=== PATIENT | female | born 1995 | race African-American/Black ===

== ENCOUNTER 2020-09-05 20:24 | Emergency (ER) | payer OTHER, SELFPAY ==
--- NOTE | ~2020-09-05 | US_ITS ---
EXAMINATION: US OB <=14 wk fetus w TV DATE: 09/06/2020 02:36 INDICATION: Pelvic pain. TECHNIQUE: Real-time transabdominal and transvaginal pelvic ultrasound was performed. COMPARISON: None. FINDINGS: TRANSABDOMINAL ULTRASOUND: The uterus measures 8.6 x 3.9 x 5.2 cm. TRANSVAGINAL ULTRASOUND: The endometrial complex measures 11 mm in thickness. There is no visible int rauterine gestational sac. There are nabothian cysts in the cervix. The right ovary measures 3.7 x 2. 8 x 2.4 cm. The left ovary measures 1.7 x 1.2 x 1.2 cm. There is no free fluid in the pelvis. IMPRESSION: 1. No visible intrauterine gestational sac, which may be normal in early . Spontaneous abor tion and ectopic are not excluded. Serial beta-hCGs are recommended. Reviewed, dictated and finalized at location A. IMPRESSION: 1. No visible intrauterine gestational sac, which may be normal in early pregn jennifer. Spontaneous and ectopic are not excluded. Serial beta- hCGs are recommended.
[2020-09-05 21:31] VITALS: BP 120/79; PULSE 81; RESP 16; TEMP 36.9; O2SAT 100
[2020-09-05 22:54] LABS: Basophils Percent Auto 0.2 % (0.2-1.2); Eosinophils Absolute Auto 0.1 K/mm3 (0-0.3); Hemoglobin 13.9 g/dL (12.0-15.0); Immature Granulocyte Absolute 0.04 K/mm3 (0.00-0.031); Immature Granulocyte Percent A 0.3 % (0-0.5); Lymphocytes Absolute Auto 3.46 K/mm3 (0.9-3.2); Lymphocytes Percent Auto 26.3 % (18.3-44.2); Mean Corpuscular HGB Conc 32.3 g/dl (32-36); Mean Corpuscular Hemoglobin 32.1 pg (26-34); Mean Corpuscular Volume 99.3 fl (80-100); Mean Platelet Volume 10.9 fl (7.4-10.4); Monocytes Absolute Auto 0.8 K/mm3 (0.1-0.6); Monocytes Percent Auto 6.1 % (2.6-8.5); Neutrophils Absolute Auto 8.7 K/mm3 (1.3-6.7); Neutrophils Percent Auto 66.1 % (45.5-73.1); Platelet Count Result 279 k/mm3 (150-375); Red Blood Count 4.33 M/mm3 (4.2-5.4); Red Cell Distribution Width 13.2 % (11.5-14.5); White Blood Count 13.2 K/mm3 (4.5-10.0)
[2020-09-05 23:08] LABS: Alanine Aminotransferase 21 U/L (4-35); Albumin Level 4.4 g/dL (3.5-5.1); Alkaline Phosphatase 87 U/L (38-126); Anion Gap 9 mmol/L (8-16); Aspartate Amino Transferase 27 U/L (14-36); Bilirubin,Total 0.2 mg/dL (0.2-1.3); Blood Urea Nitrogen 14 mg/dL (7-17); Calcium 9.2 mg/dL (8.4-10.2); Carbon Dioxide 23 mmol/L (22-30); Chloride 106 mmol/L (98-107); Estimated CRCL calculation 112 ml/min; Estimated Glomerular Filt Rate > 60; Glucose 98 mg/dL (65-105); Lipase 138 U/L (23-300); Potassium 3.9 mmol/L (3.4-5.0); Sodium 138 mmol/L (137-145)
[2020-09-05 23:13] LABS: Add Urine Microscopic? YES; Appearance Urine Cloudy (Clear); Bilirubin Urine Negative (Negative); Blood Urine Negative (Negative); Color Urine Yellow (Yellow); Glucose Urine UA Negative (Negative); Ketones Urine Negative (Negative); Leukocyte Esterase Ur Trace LEU/UL (Negative); Mucus Urine Rare /lpf; Nitrate Urine Negative (Negative); Protein Urine Negative (Negative); Specific Grav Ur 1.012 (1.001-1.035); Squamous Epithelial Cell Urine Many /hpf (Few); Urobilinogen Urine Negative mg/dL (<2.0); WBC Urine 0-3 /hpf
[2020-09-05 23:24] LABS: Beta HCG Quantitative 21.25 mIU/ML
[2020-09-06 01:07] VITALS: BP 133/90; PULSE 71; RESP 18; O2SAT 99
--- NOTE | 2020-09-06 01:47 | ED.ABDPAIN ---
HPI - Abdominal Pain General Chief Complaint: Abdominal Pain Stated Complaint: test Time Seen by Provider: 09/06/20 00:41 Source: patient and RN notes reviewed Mode of arrival: ambulatory Limitations: no limitations History of Present Illness HPI narrative: This is a 25 year old female who presents for evaluation to confirm her . She reports lower abdominal pain for a few days. She states her last menstrual period was the end of june . She took 3 test yesterday. She reports 2 of the test were positive and one of the test was negative. She denies vaginal bleeding or abnormal vaginal discharge. She denies nausea, vomiting or fever. She has not taken anything for her pain. 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 Millard. Related Data Home Medications Medication Instructions Recorded Confirmed No Home Medications 09/06/20 Allergies Allergy/AdvReac Type Severity Reaction Status Date / Time No Known Allergies Allergy Unknown Verified 09/06/20 01:07 Review of Systems Review of Systems: All systems reviewed & are unremarkable except as noted in HPI and below PMFSH Past Medical History Medical History (Updated 09/06/20 @ 06:25 by Arleth Esparza MD) Patient denies medical problems Surgical History Surgical History (Updated 09/06/20 @ 01:50 by Arleth Esparza MD) H/O section Social History Social History Gender identity (if verbalized by the patient): Female Exam Const: General: no acute distress and alert Orientation/consciousness: patient oriented x3 Eyes: EOM: EOMs intact bilaterally Chest: Chest palpation & inspection: normal inspection of the chest Resp: Effort & Inspection: normal respiratory effort and no retractions Auscultation: clear to auscultation bilaterally Cardio: Rate: regular rate Rhythm: regular rhythm Heart sounds: no murmurs GI: GI Palp: Yes Soft to palpation, Yes Tenderness to palpation present (GI) (suprapubic) and No Guarding due to palpation present (GI) Auscultation: normal bowel sounds Skin: General skin exam: normal color Rashes: no rashes Neuro: General: patient oriented x3, moves all extremities and CN's II-XI intact bilaterally Psych: Mental Status: mental status grossly normal Affect: normal affect Course Reevaluation(s) Reevaluation #1: PAtient states she does not want to wait for results of US. She left without results or discharge. She will follow up with Dr. Millard. PAtient HCG 21. Date: 09/06/20 Time: 03:00 Vital Signs Vital signs: Vital Signs Temperature 98.4 F 09/05/20 21:31 Pulse Rate 81 09/05/20 21:31 Respiratory Rate 16 09/05/20 21:31 Blood Pressure 120/79 09/05/20 21:31 Pulse Oximetry 100 09/05/20 21:31 Temperature 98.4 F 09/05/20 21:31 Pulse Rate 71 09/06/20 01:07 Respiratory Rate 18 09/06/20 01:07 Blood Pressure 133/90 09/06/20 01:07 Pulse Oximetry 99 09/06/20 01:07 MDM - Abdominal Pain Lab Data Attestation: I reviewed the patient's lab results. Result diagrams: 09/05/20 22:40 09/05/20 22:41 Labs: Lab Results 09/05/20 09/05/20 09/05/20 Range/Units 22:40 22:41 22:41 WBC 13.2 H (4.5-10.0) K/mm3 RBC 4.33 (4.2-5.4) M/mm3 Hgb 13.9 (12.0-15.0) g/dL Hct 43.0 (37.0-47.0) % MCV 99.3 (80-100) fl MCH 32.1 (26-34) pg MCHC 32.3 (32-36) g/dl RDW 13.2 (11.5-14.5) % Plt Count 279 (150-375) k/mm3 MPV 10.9 H (7.4-10.4) fl Immature Gran % (Auto) 0.3 (0-0.5) % Neut % (Auto) 66.1 (45.5-73.1) % Lymph % (Auto) 26.3 (18.3-44.2) % [place] % (Auto) 6.1 (2.6-8.5) % Eos % (Auto) 1.0 (0-4.4) % Baso % (Auto) 0.2 (0.2-1.2) % Lymph # (Auto) 3.46 H (0.9-3.2) K/mm3 [place] # (Auto) 0.8 H (0.1-0.6) K/mm3 Eos # (Auto) 0.1 (0-0.3) K/mm3 Baso # (Auto) 0.0 (0.0-0.1) K/mm3 Abs Immat Gran (auto) 0.04 H (0.00-0.031) K/mm3 Absolute Ne
[2020-09-06] MEDS: ACETAMINOPHEN 500 MG TABLET 1000 MG PO (01:53)
--- NOTE | 2020-09-06 03:30 | PC.NURSE ---
This RN entered pts room and found that pt eloped. EDP aware.
== END 2020-09-06 03:30 | disposition left against medical advice (07) ==
PROVIDERS: Emergency Medicine; Emergency Provider General Practice; PCP Internal Medicine Infectious Disease
DX: O34.80 Maternal care for other abnormalities of pelvic organs, unspecified trimester (principal); N83.201 Unspecified ovarian cyst, right side; Z3A.00 Weeks of gestation of pregnancy not specified; Z32.01 Encounter for pregnancy test, result positive
CPT/HCPCS: 36415; 76801; 76817; 80053; 81001; 81025; 83690; 84702; 85025; 99284; A9270

== ENCOUNTER 2020-10-27 09:32 | Outpatient (CLI) | payer OTHER, SELFPAY ==
--- NOTE | ~2020-10-27 | US_ITS ---
EXAMINATION: US OB <= 14 weeks fetus DATE: 10/27/2020 10:00 INDICATION: First trimester dating TECHNIQUE: Real-time pelvic transabdominal and transvaginal ultrasound was performed. COMPARISON: 09/06/2020 FINDINGS: The uterus measures 12.8 x 7.0 x 6.5 cm. There is an intrauterine gestational sac. A yolk sac is identified. heart motion is identified measuring 161 beats per minute (bpm) by M-mode Do ppler. The crown rump length measures 4.2 cm , which correlates with an estimated gestational a ge of 11 weeks and 1 day(s) (+/-) 5 day(s). The left ovary is not visualized however no left adnexal abnormality is seen. The right ovary measure s 2.5 x 2.1 x 2.1 cm. There is normal vascular flow in the right ovary. There is no free fluid in the pelvis. IMPRESSION: 1. Live intrauterine with an estimated gestational age of 11 weeks and 1 day(s) (+/-) 5 day (s) and an estimated delivery date of 05/17/2021. Reviewed, dictated and finalized at location A. IMPRESSION: 1. Live intrauterine with an estimated gestational age of 11 weeks an d 1 day(s) (+/-) 5 day(s) and an estimated delivery date of 05/17/2021.
== END 2020-10-27 09:33 | disposition home or self-care (01) ==
PROVIDERS: PCP Internal Medicine Infectious Disease; Visit Provider Physician Assistant
DX: Z34.91 Encounter for supervision of normal pregnancy, unspecified, first trimester (principal)
CPT/HCPCS: 76801

== ENCOUNTER 2021-05-17 07:19 | Inpatient (IN) | payer OTHER, SELFPAY ==
[2021-05-17] VITALS (15 sets, daily range): BP systolic 98–130; BP diastolic 54–98; PULSE 64–117; RESP 16–18; TEMP 36.5–37; O2SAT 97–99; BMI 43.4
[2021-05-17 07:47] LABS: Basophils Absolute Auto 0.1 K/mm3 (0.0-0.1); Basophils Percent Auto 0.3 % (0.2-1.2); Eosinophils Absolute Auto 0.1 K/mm3 (0-0.3); Eosinophils Percent Auto 0.8 % (0-4.4); Hematocrit 40.7 % (37.0-47.0); Hemoglobin 13.6 g/dL (12.0-15.0); Immature Granulocyte Absolute 0.21 K/mm3 (0.00-0.031); Immature Granulocyte Percent A 1.4 % (0-0.5); Lymphocytes Percent Auto 21.4 % (18.3-44.2); Mean Corpuscular HGB Conc 33.4 g/dl (32-36); Mean Corpuscular Hemoglobin 33.1 pg (26-34); Mean Platelet Volume 11.1 fl (7.4-10.4); Monocytes Absolute Auto 1.4 K/mm3 (0.1-0.6); Monocytes Percent Auto 8.9 % (2.6-8.5); Neutrophils Absolute Auto 10.4 K/mm3 (1.3-6.7); Neutrophils Percent Auto 67.2 % (45.5-73.1); Platelet Count Result 257 k/mm3 (150-375); Red Blood Count 4.11 M/mm3 (4.2-5.4); White Blood Count 15.4 K/mm3 (4.5-10.0)
--- NOTE | 2021-05-17 08:07 | PM.OBPRVD ---
OB - Delivery Note Procedure Delivery date: 05/17/21 Procedure: Vaginal After Events: Positive Group B Strep (GBS) Intrapartal Events: Decelerations and Other (mild shoulder dystocia) Delivery monitor: External FHT, External Uterine and Internal FHT Route of delivery: Laceration Description: None Quantitative Blood Loss (ml): 25 Anesthesia type: None Disposition: Floor Narrative: With adequate expulsive efforts by the mother, the baby's head was delivered OA. A mild shoulder dystocia was encountered and relieved with Mc Jose L's and suprapubic pressure. The baby's anterior shoulder then delivered under the pubic symphysis without difficulty. The posterior shoulder and the rest of the baby delivered without difficulty. The infant was placed on the mothers chest and suctioned and stimulated. The cord was clamped and cut after 60 seconds. Mother and baby both stable. Baby Date of : 05/17/21 Time of : 07:54 Weeks of gestation at delivery: 40 Infant gender: Female Weight (pounds): 7 Weight (ounces): 5 presentation: vertex Placenta delivery description: Spontaneous Cord Vessel Description: 3 Vessels and Delayed Cord Clamping score one minute: 9 score five minutes: 9
--- NOTE | 2021-05-17 08:10 | WPDOBADMIT ---
Obstetrics - Admit Note Admission Note: record reviewed. No pertinent additions to the history and/or any subsequent changes in the physical findings that are not consistent with the expected course of the were found. Additions to the history and/or subsequent changes in the physical findings follow. Pt presented in active labor at 8cm, known GBS pos, but delivered precipitously without anesthesia or antibiotics. Had a prior CS and one prior .
[2021-05-17] MEDS: OXYTOCIN 30 UNITS/NS 500 ML 30 UNITS/500 ML BAG 999 UNITS IV CONT (08:29)
[2021-05-17] MEDS: OXYTOCIN 30 UNITS/NS 500 ML 30 UNITS/500 ML BAG 125 UNITS IV CONT (08:31)
[2021-05-17] MEDS: IBUPROFEN 600 MG TABLET PO ×2 (08:41→15:39)
--- NOTE | 2021-05-17 09:07 | LDADM ---
This patient, Rosalba Amin, was admitted to Labor/Delivery/Recovery 102 on 05/17/21 at 07:19. Plans for labor, pain management and were discussed with patient. Patient/family oriented to hospital policies and general routines including ID bracelet, bed and alarms, visiting hours, pain management, procedures, bathroom and other care routines, personal items, smoking policy, room service/diet and guest tray routines, infant security routines, and visiting hours. Patient/Family are encouraged to report perceived risks to care and to ask questions if they do not understand what they are told or what they should do. See [facility] for further documentation.
[2021-05-17] MEDS: WITCH HAZEL 40 PADS 1 PAD TOPICAL (10:10)
--- NOTE | 2021-05-17 10:27 | OBPPTRN ---
Patient transferred to post room #284 via wheelchair. Support person present. Oriented to unit, room, information board, rooming in, admission packet and security measures. Patient verbalizes understanding.
--- NOTE | 2021-05-17 11:49 | PC.NURSE ---
On 05/17/21, the student,Manan Velasco, provided care and completed [facility] documentation on this patient. I have reviewed the student's documentation and agree with the findings.
--- NOTE | 2021-05-17 12:52 | PC.NURSE ---
Patient admits to marijuana use during , UDS is negative; there was limited care at the beginning of her due to changing providers, but she was consistent with her appointments for Dr. Cerda. Due to these reasons, care coordination was notified for consult with patient. [employer] medical recruiter Dr. Murilloi aware of this information and orders a cord sengment to be sent for drug screening on baby.
[2021-05-17 13:50] LABS: Rapid Plasma Reagin Reactive (NonReactive)
--- NOTE | 2021-05-17 16:08 | PCCCNOTE ---
Recvd notification that pt. has history of marijuana use during . Pt. was not tested for drug use during this admission. Baby's umbilical cord to be tested. Pt. denies drug use and prior DCFS involvement. DCFS report #[id number] called to Sabine Maza with DCFS, who reports no report being taken and if baby's umbilical cord only comes back THC+, no follow up call to them is required. She states to notify DCFS again if umbilical cord is positive for anything else, besides THC. CHARLES Jose L at bedside. Pt. states will live at home in [place] with FOB, and two other children 6 and 4 year olds. Pt. states she has family and friends who are supportive. Pt. states having all necessary supplies for new baby. Pt. states she is established with both [employer] and [employer] [place]. resources provided to pt. RAJIV melgoza.
[2021-05-18 04:15] VITALS: BP 131/70; PULSE 88; RESP 16; TEMP 36.8
[2021-05-18 05:23] LABS: Hematocrit 36.3 % (37.0-47.0); Hemoglobin 11.9 g/dL (12.0-15.0)
[2021-05-18 07:30] VITALS: BP 117/57; PULSE 72; RESP 18; TEMP 36.4; O2SAT 100
--- NOTE | 2021-05-18 07:57 | PM.OBPNVD ---
OB - PN: Subj Subjective Date/time seen: 05/18/21 07:57 Patient comments: no complaints, pain well controlled, incisional pain, tolerating diet and flatus present OB - PN: Obj Data Labs CBC & Chem 7: 05/18/21 04:35 Labs: Laboratory Results - last 24 hr 05/17/21 05/17/21 05/18/21 07:39 07:39 04:35 Hgb 11.9 L Hct 36.3 L RPR Reactive A Blood Type O Positive Antibody Screen Negative OB - PN A/P Plan day: 1 Plan: routine care Comments: No problems, routine care Time Spent With Patient Time: Total time spent is greater than 50% in coordination of care (as documented) at patient's floor/unit and/or counseling patient: Exam Const: General: comfortable, no acute distress and alert Resp: Effort & Inspection: normal respiratory effort Auscultation: no crackles, no rales and no rhonchi Cardio: Rate: regular rate Heart sounds: no click, no murmurs and no rubs GI: Inspection: non-distended GI Palp: No Tenderness to palpation present (GI) Auscultation: normal bowel sounds Other: Incision - CDI Extrem: General: normal to inspection, no pedal edema and no calf tenderness
[2021-05-18 08:00] VITALS: PULSE 72; RESP 18; O2SAT 100
--- NOTE | 2021-05-18 10:06 | PC.NURSE ---
[id number] Introductions made and consulted with patient to assess needs related to . Mother led conversation with her experience with feeding baby so far and has in sidelying position latch looks 140-150 degree but states the latch feels pinchy . Demonstrated detaching infant and nipple is misshaped. Mother works well with her infant. Reviewed good handwashing when working with infant, breast, nipples and how to protect the nipples with a deep latch. Encouraged understanding the benefits of skin to skin, responding to feeding cues, frequencies of feeding 8-12 times in 24 hours (approximately 2-3 hours), duration of feedings, milk production, intake/output feeding sheet and signs of adequate intake. Discussed stimulating infant with skin to skin, hand expressing colostrum, touch and talking to infant to encourage eating at the breast. Reviewed positioning and alignment, supporting breast, off-centered (asymmetrical latch) and leading with the chin with big open wide gape. Infant latched optimally to the right breast in football position. Education given to mother of how to visualize suck/swallow ratios and drinking at the breast. Infant was able to maintain latch without discomfort to mother. Nipple care with optimal latching, comfort and healing with warm, wet washcloth to rinse breast and leave to air-dry. Resources used to facilitate learning were used from the visual handouts. Mother voiced understanding responding to feeding cues, may need to stimulating approximately 2-3 hours from the start of the last feeding, calling for assistance if the infant does not latch or there discomfort . Reported to primary RN.
[2021-05-18] MEDS: MULTIVIT/MIN/PREN/FOL AC/IRON TABLET 1 TAB PO (11:56)
[2021-05-18] MEDS: IBUPROFEN 600 MG TABLET PO (11:56)
[2021-05-18 18:55] VITALS: BP 128/77; PULSE 75; RESP 16; TEMP 36.7
--- NOTE | 2021-05-19 07:16 | PM.OBPNVD ---
OB - PN: Subj Subjective Date/time seen: 05/19/21 07:16 Patient comments: no complaints baby status: doing well OB - PN: Obj Data Labs CBC & Chem 7: 05/18/21 04:35 OB - PN A/P Plan day: 2 Plan: routine care and discharge home Time Spent With Patient Time: Total time spent is greater than 50% in coordination of care (as documented) at patient's floor/unit and/or counseling patient: Review of Systems Review of Systems: All systems reviewed & are unremarkable except as noted in HPI and below Exam Const: General: cooperative, healthy appearing and comfortable
[2021-05-19 07:55] VITALS: BP 96/47; PULSE 56; RESP 16; TEMP 36.2; O2SAT 100
[2021-05-19 08:00] VITALS: PULSE 56; RESP 16; O2SAT 100
--- NOTE | 2021-05-19 10:48 | PC.NURSE ---
Patient was given the opportunity to view the discharge video Mother & Baby Care, The First Two Weeks and to ask questions. Patient declined viewing the video and has been given the mother/baby guide for home reference.
[2021-05-19] MEDS: MULTIVIT/MIN/PREN/FOL AC/IRON TABLET 1 TAB PO (11:12)
[2021-05-19] MEDS: IBUPROFEN 600 MG TABLET PO (11:16)
[2021-05-20 11:14] VITALS: BP 123/75; PULSE 67; RESP 16; TEMP 36.7; O2SAT 99
[2021-05-20 21:24] LABS: Treponema pallidum Ab FTA ABS Nonreactive (Nonreactive)
--- NOTE | 2021-05-21 18:08 | PM.OBDSVD ---
DS: Admitting Diagnosis Discharge Date 05/19/21 Admitting Diagnosis labor OB - DS: Summary OB Procedures : None OB Procedures Intrapartum: Spontaneous Vag Delivery and OB Procedures: : None Time Spent with Patient Time attestation: Total time spent providing and/or coordinating discharge services: DS: Data Data Completed and Pending Labs on day of discharge: Labs from last 24 hours 05/17/21 07:39 T.pallidum Ab (FTA-ABS) Nonreactive Discharge Plan Discharge Attending physician on discharge: Linda Jeffrey Consulting providers: Linda Jeffrey ; Blanca Hinton Discharging Clinician: Blanca Hinton Patient Disposition: Home, Self-Care Activity: pelvic rest Diet: regular Discharge Instructions: Education: Mom and Baby Guide Given to: Mother Follow-Up: Call your delivering provider's office for an appointment to be seen in: 4 Weeks Mom and baby should come to the [facility] for the follow-up appointment. Appointment Date/Time: Thursday, May 20, 2021 at 11:00 a.m. What to expect at your follow-up visit: Blood Pressure Check Physical Assessment Call [phone] if you are unable to keep your appointment time. BREAST CARE: * Wear a snug supportive bra. * For engorgement discomfort: Breast Feeding: * Apply warm moist washcloths * Express milk as needed to relieve engorgement * Wear loose clothing Bottle Feeding: * May apply ice packs * For sore nipples: * Identify correct latch-on * Apply warm moist washcloths before and after nursing * Air dry nipples after nursing * May apply Lansinoh cream to nipples EPISIOTOMY/PERINEAL CARE: * Until bleeding stops, use your jericho bottle after urinating * Change your pad frequently throughout the day * You may take sitz baths several times a day (fill your bathtub with warm water and soak for 20 minutes.) Do NOT bathe in the water * No tub baths until seen by your physician - You may shower ACTIVITY: * Rest as much as possible. * Do not exercise or lift anything heavier than your baby (such as laundry or other children.) * Avoid stairs or driving as much as possible. * Do not put anything into the vagina. No douching, tampons, or sexual activity until seen by physician. NOTIFY PHYSICIAN IF YOU HAVE ANY QUESTIONS OR IF ANY OF THE FOLLOWING SYMPTOMS OCCUR: * If your vaginal bleeding becomes foul smelling. * If your vaginal bleeding becomes more heavy than a period or if your bleeding changes from pink to bright red. However, you may pass an occasional walnut-sized clot once or twice for the first week . * If you experience a sharp, shooting pain in you calves. * If you discover a hard, reddened area on your breast or if you experience flu-like symptoms. DIET: * Eat regular, well-balanced meals. * Drink plenty of fluids daily. If , drink to thirst. Stand Alone Forms: General Discharge Information Follow-up/Referrals: Sabine Singh MD [Physician] - 4 Weeks Discharge Medications: Continued PNV [id number] [] 28 mg iron- 800 mcg Tablet 1 tablet PO DAILY RF: 0 Date of admission: 05/17/21 07:19 Primary Care Provider: GriselShyanne Admitting Provider: Sabine Singh Attending physician on admission: Sabine Singh Condition: Stable
== END 2021-05-19 12:55 | disposition home or self-care (01) | DRG 560 ==
LOC: ANHLDR 07:24 → ANHOB2 10:29
PROVIDERS: Admitting Provider Obstetrics & Gynecology; PCP Internal Medicine Infectious Disease; Visit Provider Obstetrics & Gynecology
DX: O62.3 Precipitate labor (principal); Z37.0 Single live birth; Z3A.40 40 weeks gestation of pregnancy; O34.211 Maternal care for low transverse scar from previous cesarean delivery; O36.8330 Maternal care for abnormalities of the fetal heart rate or rhythm, third trimester, not applicable or unspecified; O99.824 Streptococcus B carrier state complicating childbirth; O66.0 Obstructed labor due to shoulder dystocia
CPT/HCPCS: 36415; 85014; 85018; 85025; 86592; 86780; 86850; 86900; 86901; A9270; J2590

== ENCOUNTER 2021-08-08 00:02 | Day surgery (SDC) | payer OTHER, SELFPAY ==
[2021-07-31 13:42] VITALS: BMI 40.0
--- NOTE | 2021-07-31 13:44 | SUR.PREOP ---
Report to the Outpatient Waiting Room, entrance under the green pavilion located off [facility], at time _0600 on date _08/08/21 . OR Time: _0730. - You and your visitor will be asked a series of questions to screen for COVID 19 for your protection. - Only one visitor is allowed at this time. - The patient visitor is requested to leave or wait in car when not with patient. - A mask is required within the hospital. Patients may have clear liquids (water, carbonated beverages, clear teas, apple juice) until 3 hours prior to surgery with a maximum of 20 ounces. - No food from midnight until time of surgery - Infants may have breast milk until 4 hours before surgery, formula 6 hours prior to surgery. - Children will be allowed to drink immediately following surgery. If applicable, please bring a bottle or sippy cup to assist with drinking. Juice, water, soda, and popsicles are readily available. For infants on formula, please bring formula the day of surgery. Pacifiers are allowed. Take the following medications with a SIP of water the morning of surgery: ____n/a Medications to discontinue per physician ___n/a Date to take last dose___n/a Please no make-up, nail spanish, hairspray, perfume, deodorant, or body powder the day of surgery. No jewelry (including any body piercings) or valuables the day of surgery, leave them at home. Please take a shower or bath the night before, or the morning of, surgery with an antibacterial soap. Wear comfortable, loose fitting clothing. Children are encouraged to wear pajamas. - Jewelry must be removed prior to entering the operating room. Rings and piercings that are not removed may be cut off. - The hospital will not accept responsibility for valuables. - Please leave all valuables, including medications, at home the day of surgery. If you are going home after surgery, a licensed after school driver must drive you home. - NO public transportation without another adult. - We recommend that an adult stay with you for 24 hours following discharge. - We also recommend that you do not drive, make important decision, drink alcoholic beverages, or take any drugs that were not prescribed by your health care provider for at least 24 hours after your discharge time. For Pediatric surgeries, we recommend two adults accompany the child home (only one inside the building at this time). Follow any additional instructions given to you from your surgeon. If you or anyone in your household have experienced Covid symptoms in the past week, please notify your surgeon or the nurse liaison at the phone number below for possible testing. Telephone instructions given to erum chase___and asked if any additional questions and then verbalized understanding. Patient advised to call surgeon office or pre surgery nurse liaison [phone] if any additional questions.
[2021-08-08] VITALS (8 sets, daily range): BP systolic 114–143; BP diastolic 83–106; PULSE 50–85; RESP 16–18; TEMP 36.2–36.5; O2SAT 95–100
[2021-08-08] MEDS: ACETAMINOPHEN 500 MG TABLET 1000 MG PO (07:49)
--- NOTE | 2021-08-08 07:55 | P.PNAN_ITS ---
Anes - Initial Pre Proc Eval Procedure: Operation Date: 08/08/21 09:00 Proposed Procedures p Laparoscopic Bilateral Salpingectomy - Sabine Singh MD Date/Time: 08/08/21 07:55 Surgeon: Sabine Singh MD Pre Op Diagnosis: Sterilization Patient Data Age: 26 Gender: F Height: 1.7 m Weight: 115.9 kg Allergies Allergy/AdvReac Type Severity Reaction Status Date / Time No Known Allergies Allergy Unknown Verified 07/31/21 13:28 Home Medications Medication Instructions Recorded Confirmed Type No Home Medications 07/31/21 07/31/21 History Patient hx anesthesia problems: none Family hx anesthesia problems: none Results Review: All pre-operative results and documents have been reviewed as part of the pre- operative evaluation. PMFSH Past Medical History Medical History Anxiety Asthma Depression Morbid obesity with BMI of 40.0-44.9, adult Patient denies medical problems Smoker Surgical History Surgical History (Updated 09/06/20 @ 01:50 by Arleth Esparza MD) H/O section Family History Family History (Updated 04/19/21 @ 12:24 by Charlie López RN) Other No pertinent family history Social History Social History Smoking status: Current every day smoker Tobacco type: cigarettes Additional smoking assessment comments: 1/2 ppd cigarrettes x 18 years Alcohol intake: current Drinks per week: 3 Substance use: current Substance use type: marijuana Other substance usage details: occasional smoking Living arrangements: alone Gender identity (if verbalized by the patient): Female Spiritual care concerns: No Anes - Eval Final PreProcedure Day of Procedure 08/08/21 07:55 Patient weight: morbidly obese Heart: regular rate and rhythm Lungs: clear to auscultation and normal air movement Airway: Mallampati scale class II Neurological: alert and oriented Last oral intake: >/= 8 hours ASA classification: III Emergent: no Anesthetic plan: proceed Anesthesia type and monitoring: general ETT Results Review: All pre-operative results and documents have been reviewed as part of the pre- operative evaluation. Informed Consent: The patient's anesthetic plan and its attendant risks and benefits were discussed with the patient/family/POA. Questions were solicited and answers provided to the satisfaction of the patient/family/POA.
[2021-08-08] MEDS: LACTATED RINGERS 1,000 ML 30 ML IV CONT (08:01)
[2021-08-08] MEDS: KETOROLAC 15 MG/ML VIAL (*BKC) IV PUSH (08:01)
--- NOTE | 2021-08-08 08:52 | PM.IMHP ---
H&P: HPI History of Present Illness Date/Time: 08/08/21 08:52 Chief Complaint: sterilization Narrative: Rosalba is a who wants sterilization. She is certain. She has had one CS and is a smoker. BMI 39.9. Review of Systems Review of Systems: All systems reviewed & are unremarkable except as noted in HPI and below PMFSH Past Medical History Medical History Anxiety Asthma Depression Morbid obesity with BMI of 40.0-44.9, adult Patient denies medical problems Smoker Surgical History Surgical History (Updated 09/06/20 @ 01:50 by Arleth Esparza MD) H/O section Family History Family History (Updated 04/19/21 @ 12:24 by Charlie López RN) Other No pertinent family history Social History Social History Smoking status: Current every day smoker Tobacco type: cigarettes Additional smoking assessment comments: 1/2 ppd cigarrettes x 18 years Alcohol intake: current Drinks per week: 3 Substance use: current Substance use type: marijuana Other substance usage details: occasional smoking Living arrangements: alone Gender identity (if verbalized by the patient): Female Spiritual care concerns: No Meds Home Medications and Allergies Home Medications Medication Instructions Recorded Confirmed Type No Home Medications 07/31/21 07/31/21 History Allergies Allergy/AdvReac Type Severity Reaction Status Date / Time No Known Allergies Allergy Unknown Verified 08/08/21 08:32 Vital Signs Vital Signs - 24 hr 08/08/21 08:30 Temperature 97.7 F Pulse Rate 73 Respiratory Rate 16 Blood Pressure 137/90 Pulse Oximetry 100 Oxygen Delivery Room Air Exam Const: General: no acute distress Resp: Effort & Inspection: normal respiratory effort Auscultation: clear to auscultation bilaterally Cardio: Rate: regular rate Rhythm: regular rhythm GI: GI Palp: Yes Soft to palpation Extrem: General: normal to inspection Assessment and Plan Assessment and plan (1) Sterilization: Code(s): Z30.2 - Encounter for sterilization Status: Acute Assessment and Plan: Consented for LSC salpingectomy. Will proceed.
--- NOTE | 2021-08-08 08:54 | WPDHPUPDATE1 ---
History and Physical Update Update Date/Time: 08/08/21 08:54 History and Physical has been reviewed, including an updated exam of the patient. There are NO changes in the patient's condition. Risks, benefits, and alternatives have been discussed and questions answered. Patient agrees to proceed with procedure.
[2021-08-08] MEDS: ceFAZolin 3 GM/D5W 100 ML 100 ML IVPB (09:11)
--- NOTE | 2021-08-08 10:00 | P.OP_ITS ---
Procedure Note - Detailed Date of Procedure 08/08/21 Pre-op Diagnosis Sterilization Post-op Diagnosis Same Procedure Performed Laparoscopic Bilateral Salpingectomy Surgeon Sabine Singh MD Anesthesia General Indications undesired future fertility Findings Normal uterus and ovaries and tubes. Some omental adhesions upper abdomen. Description of Procedure The patient was taken to the OR and placed in dorthal lithotomy in [facility]. She received general anesthesia. A speculum was placed and the cervix grasped with a single tooth tenaculum and an acorn uterine manipulator placed easily. A steven catheter had previously been placed. She had received preoperative antibiotics. A 5mm subumbilical skin incision was made and using direct visualization, the trocar was inserted intraperitoneally. The abdomen was insufflated and the pelvis inspected with the above findings. Bilateral 5mm incisions were made and trocars were placed under direct visualization. The right tube was grasped and elevated and using the Ligasure device, the tube was sequentially cauterized and ligated and removed through the trocar and sent to pathology. Similarly, on the left, the tube was removed using the Ligasure device. Hemostasis was noted. The upper abdomen was inspected and noted to be normal. The trocars were removed and the Co2 was removed from the abdomen. The skin was closed with 4-0 vicryl and steri strips. The patient tolerated the procedure well and was taken to the recovery room in stable condition. EBL 10cc. Estimated Blood Loss 10 Drains No Packing No Pathology Yes Complications No immediate complications Condition Stable Disposition Same day
[2021-08-08] MEDS: ONDANSETRON INJ 4 MG/2 ML VIAL IV PUSH (10:23)
[2021-08-08] MEDS: diphenhydrAMINE HCl INJ 50 MG/ML VIAL 25 MG IV PUSH (10:31)
[2021-08-08] MEDS: oxyCODONE HCL (*CRX) 5 MG TAB IR PO (11:29)
== END 2021-08-08 11:54 | disposition home or self-care (01) ==
PROVIDERS: PCP Internal Medicine Infectious Disease; Visit Provider Obstetrics & Gynecology
PROC: (CPT 49320; principal; 2021-08-08 09:00)
DX: Z30.2 Encounter for sterilization (principal); F17.210 Nicotine dependence, cigarettes, uncomplicated; E66.01 Morbid (severe) obesity due to excess calories; Z68.41 Body mass index [BMI] 40.0-44.9, adult
CPT/HCPCS: 58661; 88302; A9270; J0690; J1100; J1200; J1885; J2001; J2250; J2405; J2710; J3010; J7120

== ENCOUNTER 2022-01-07 17:53 | Emergency (ER) | payer OTHER, SELFPAY ==
--- NOTE | ~2022-01-07 | XR_ITS ---
XR knee RT 3V DATE: 01/07/2022 18:48 INDICATION: Anteromedial knee pain after falling one day ago. TECHNIQUE: 3 views COMPARISON: None FINDINGS: No recent fracture or dislocation or joint effusion. No periosteal reaction or bone destruc tion. Joint spaces are preserved. No radiopaque intra-articular loose body or chondrocalcinosis. IMPRESSION: No recent fracture or dislocation or joint effusion Reviewed, dictated and finalized at location [facility]. [facility]
[2022-01-07 17:55] VITALS: BP 144/97; PULSE 86; RESP 16; TEMP 36.8; O2SAT 100
--- NOTE | 2022-01-07 20:02 | ED.LOWEXIN ---
HPI - Extremity Injury (Lower) General Chief Complaint: Extremity Injury, Lower Stated Complaint: right knee injury Time Seen by Provider: 01/07/22 19:57 Source: patient and RN notes reviewed Mode of arrival: ambulatory Limitations: no limitations History of Present Illness HPI Narrative: This is a 26 year old female who presents for evaluation of right knee pain . She states yesterday she fell onto her right knee on concrete. She has pain to anterior and medial knee. She has some swelling and bruising. She has been applying ice for pain. She was evaluated at an urgent care today, and she was told to come to ER for xray. She has pain with movement and her pain is improved with bending her knee. Related Data Allergies Allergy/AdvReac Type Severity Reaction Status Date / Time No Known Allergies Allergy Unknown Verified 08/08/21 08:32 Review of Systems Review of Systems: All systems reviewed & are unremarkable except as noted in HPI and below Constitutional: Constitutional: Denies chills, Denies fatigue and Denies fever(s) ENT: Denies nasal congestion and Denies sore throat PMFSH Past Medical History Medical History Anxiety Asthma Depression Morbid obesity with BMI of 40.0-44.9, adult Patient denies medical problems Smoker Surgical History Surgical History H/O section Family History Family History (Updated 04/19/21 @ 12:24 by Charlie López RN) Other No pertinent family history Social History Social History Smoking status: Current every day smoker Tobacco type: cigarettes Additional smoking assessment comments: 1/2 ppd cigarrettes x 18 years Alcohol intake: current Drinks per week: 3 Substance use: current Substance use type: marijuana Other substance usage details: occasional smoking Gender identity (if verbalized by the patient): Female Spiritual care concerns: No Exam Const: General: no acute distress and alert Nutritional Appearance: well nourished Orientation/consciousness: patient oriented x3 Limitations: no limitations HENMT: Head: normal to inspection Face and sinus: normal facial exam Eyes: EOM: EOMs intact bilaterally Chest: Chest palpation & inspection: normal inspection of the chest Resp: Effort & Inspection: normal respiratory effort Skin: Rashes: no rashes Other: right anterior knee with superficial abrasions, no significant swelling, no deformity Neuro: General: patient oriented x3, moves all extremities and CN's II-XI intact bilaterally Extrem: Other: FROM on right knee, abrasion to knee, Psych: Mental Status: mental status grossly normal Course Reevaluation(s) Reevaluation #1: I Discussed with patient xray did not show anything significant. I Discussed discharge plan. Date: 01/07/22 Time: 20:08 Vital Signs Vital signs: Vital Signs Temperature 98.2 F 01/07/22 17:55 Pulse Rate 86 01/07/22 17:55 Respiratory Rate 16 01/07/22 17:55 Blood Pressure 144/97 H 01/07/22 17:55 Pulse Oximetry 100 01/07/22 17:55 Oxygen Delivery Room Air 01/07/22 17:55 Temperature 98.2 F 01/07/22 17:55 Pulse Rate 86 01/07/22 17:55 Respiratory Rate 16 01/07/22 17:55 Blood Pressure 144/97 H 01/07/22 17:55 Pulse Oximetry 100 01/07/22 17:55 Oxygen Delivery Room Air 01/07/22 17:55 MDM - Extremity Injury (Lower) Imaging Data Radiologist's impression: ITS Impressions Knee X-Ray 01/07/22 18:49 IMPRESSION: No recent fracture or dislocation or joint effusion Discharge Plan Discharge Clinical Impression: Contusion of right knee, initial encounter Patient Disposition: Home, Self-Care Condition: Stable Instructions: Contusion in Adults (ED), Knee Pain (ED) Additional Instructions: Apply ice to your knee. Take ibuprofen for your pain. Prescriptions: New ibuprofen 800 mg tablet 800 mg PO TID PRN (Reason: pain
== END 2022-01-07 20:40 | disposition home or self-care (01) ==
PROVIDERS: Emergency Provider General Practice; PCP Internal Medicine Infectious Disease
DX: S80.01XA Contusion of right knee, initial encounter (principal); J45.909 Unspecified asthma, uncomplicated; E66.01 Morbid (severe) obesity due to excess calories; Z68.41 Body mass index [BMI] 40.0-44.9, adult; F17.210 Nicotine dependence, cigarettes, uncomplicated
CPT/HCPCS: 73562; 99283

== ENCOUNTER 2022-11-26 00:43 | Emergency (ER) | payer OTHER, SELFPAY ==
[2022-11-26] VITALS (7 sets, daily range): BP systolic 119–159; BP diastolic 77–101; PULSE 65–99; RESP 16–19; TEMP 36.7; O2SAT 98–100
--- NOTE | ~2022-11-26 | CT_ITS ---
EXAMINATION: CT facial bones w con DATE: 11/26/2022 07:37 INDICATION: Right facial swelling. TECHNIQUE: Computed tomography (CT) of the facial bones and maxillofacial region was performed with 7 5 mL Omnipaque 350 intravenous contrast. 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 The dose-length product was 296.37 mGy-cm. COMPARISON: None. FINDINGS: There is right face soft tissue swelling. There is mild right internal jugular and submandi bular lymphadenopathy, likely reactive. There is moderate mucosal thickening in right maxillary sinus and mild mucosal thickening in the paranasal sinuses. The mastoid air cells are normal. There is a c arious lesion of tooth 3 with periapical lucencies, breech of the buccal cortex of the alveolar proce ss, and 12 x 12 mm abscess. There is a carious lesion of 14. There is a carious lesion of 19 with per iapical lucencies. IMPRESSION: 1. Dental disease with abscess adjacent to tooth 3. 2. Mild right internal jugular and submandibular lymphadenopathy, likely reactive. Reviewed, dictated and finalized at location E. IMPRESSION: 1. Dental disease with abscess adjacent to tooth 3. 2. Mild right internal jugular and submandibular lymphadenopathy, likely reacti ve.
--- NOTE | 2022-11-26 06:29 | ED.DENTAL ---
HPI - Dental/Oral General Chief complaint: Dental/Oral <Katlyn Thornton MD - Last Filed: 11/26/22 07:12> Stated complaint: Dental abscess <Katlyn Thornton MD - Last Filed: 11/26/22 07:12> Time Seen by Provider: 11/26/22 06:04 <Katlyn Thornton MD - Last Filed: 11/26/22 07:12> History of Present Illness HPI Narrative: Patient presents the emergency department with right facial swelling. She was seen in urgent care a week ago and started on antibiotics for a small dental abscess. Her symptoms have gotten significantly worse. She has been dizzy with nausea and the pain has gotten worse. Her right facial is generally swollen. She denies fevers and chills <Katlyn Thornton MD - Last Filed: 11/26/22 07:12> Related Data Home medications: Home Medications Medication Instructions Recorded Confirmed amoxicillin 875 mg-potassium tablet 11/26/22 clavulanate 125 mg tablet <Katlyn Thornton MD - Last Filed: 11/26/22 07:12> Allergies/adverse reactions: Allergies Allergy/AdvReac Type Severity Reaction Status Date / Time No Known Allergies Allergy Unknown Verified 11/26/22 01:00 <Katlyn Thornton MD - Last Filed: 11/26/22 07:12> Review of Systems Review of Systems: Negative except what is documented in the HPI <Katlyn Thornton MD - Last Filed: 11/26/22 07:12> [facility] Past Medical History Medical History: Medical History Anxiety Asthma Depression Morbid obesity with BMI of 40.0-44.9, adult Patient denies medical problems Smoker <Katlyn Thornton MD - Last Filed: 11/26/22 07:12> Surgical History Surgical History: Surgical History H/O section <Katlyn Thornton MD - Last Filed: 11/26/22 07:12> Family History Family History: Family History (Updated 04/19/21 @ 12:24 by Charlie López RN) Other No pertinent family history <Katlyn Thornton MD - Last Filed: 11/26/22 07:12> Social History Social History: Social History Smoking status: Current every day smoker Tobacco type: cigarettes Additional smoking assessment comments: 1/2 ppd cigarrettes x 18 years Alcohol intake: current Drinks per week: 3 Substance use: current Substance use type: marijuana Other substance usage details: occasional smoking Living arrangements: alone Gender identity (if verbalized by the patient): Female Spiritual care concerns: No <Katlyn Thornton MD - Last Filed: 11/26/22 07:12> Exam Narrative: GENERAL: Well-appearing, well-nourished, and in no acute distress. HEAD: Normocephalic, atraumatic. EYES: PERRLA and EOMI. right facial generalized swelling, no erythema ENT: Nares clear, no rhinorrhea or epistaxis. Mucous membranes moist. Focal area of tenderness and swelling right upper mandible NECK: Supple. CHEST: Clear to auscultation. No respiratory distress. HEART: Regular rate and rhythm. ABDOMEN: Soft, nontender, nondistended. EXTREMITIES: Normal range of motion. No edema. SKIN: Warm, dry, no rash. NEURO: No focal deficits. Alert and oriented x3. PSYCH: Normal mood and affect. <Katlyn Thorntno MD - Last Filed: 11/26/22 07:12> HENMT: Teeth and gingiva: abnormal tooth and associated gingiva (#3, gum swelling, dental srinivasa) <Arleth Esparza MD - Last Filed: 11/26/22 17:35> Course Course Emergency Course: Patient is getting worse on antibiotics at home. She has not been eating due to the pain. CT face ordered to rule out large abscess. May need admission for IV antibiotics and rehydration <Katlyn Thornton MD - Last Filed: 11/26/22 07:12> Patient is getting worse on antibiotics at home. She has not been eating due to the pain. CT face ordered to rule out large abscess. <Arleth Esparza MD - Last Filed: 11/26/22 17:35> Reevaluation(s) Reevaluation #1: I Discussed with patient plan to
[2022-11-26] MEDS: ONDANSETRON INJ 4 MG/2 ML VIAL IV PUSH (06:48)
[2022-11-26] MEDS: SODIUM CHLORIDE 0.9% IV 1,000 ML 999 ML IV CONT (06:48)
[2022-11-26] MEDS: MORPHINE SULFATE (*CRX) 2 MG/ML INJ IV PUSH (06:48)
[2022-11-26] MEDS: CLINDAMYCIN 600 MG/D5W 50 ML 600 MG/50 ML PIGGYBACK 100 MG IVPB (06:49)
[2022-11-26] MEDS: KETOROLAC 15 MG/ML VIAL (*BKC) IV PUSH (06:57)
[2022-11-26 07:00] LABS: Basophils Percent Auto 0.3 % (0.2-1.2); Eosinophils Absolute Auto 0.3 K/mm3 (0-0.3); Eosinophils Percent Auto 2.1 % (0-4.4); Hemoglobin 12.7 g/dL (12.0-15.0); Immature Granulocyte Absolute 0.04 K/mm3 (0.00-0.031); Immature Granulocyte Percent A 0.3 % (0-0.5); Lymphocytes Absolute Auto 2.83 K/mm3 (0.9-3.2); Lymphocytes Percent Auto 23.9 % (18.3-44.2); Mean Corpuscular HGB Conc 32.6 g/dl (32-36); Mean Corpuscular Hemoglobin 32.1 pg (26-34); Mean Corpuscular Volume 98.5 fl (80-100); Mean Platelet Volume 10.7 fl (7.4-10.4); Monocytes Absolute Auto 1.5 K/mm3 (0.1-0.6); Monocytes Percent Auto 12.4 % (2.6-8.5); Neutrophils Absolute Auto 7.2 K/mm3 (1.3-6.7); Platelet Count Result 318 k/mm3 (150-375); Red Blood Count 3.96 M/mm3 (4.2-5.4); White Blood Count 11.9 K/mm3 (4.5-10.0)
[2022-11-26 07:10] LABS: Alanine Aminotransferase 20 U/L (6-35); Albumin Level 4.2 g/dL (3.5-5.1); Alkaline Phosphatase 69 U/L (38-126); Anion Gap 6 mmol/L (8-16); Aspartate Amino Transferase 23 U/L (14-36); Bilirubin,Total 0.5 mg/dL (0.2-1.3); Blood Urea Nitrogen 7 mg/dL (7-17); Calcium 8.7 mg/dL (8.4-10.2); Carbon Dioxide 29 mmol/L (22-30); Chloride 104 mmol/L (98-107); Estimated CRCL calculation 113 ml/min; Estimated Glomerular Filt Rate > 60; Glucose 100 mg/dL (65-110); Potassium 3.8 mmol/L (3.4-5.0); Sodium 139 mmol/L (137-145)
== END 2022-11-26 10:54 | disposition home or self-care (01) ==
PROVIDERS: Emergency Provider Emergency Medicine; PCP Internal Medicine Infectious Disease
DX: K04.7 Periapical abscess without sinus (principal); R22.0 Localized swelling, mass and lump, head; F17.210 Nicotine dependence, cigarettes, uncomplicated; F41.9 Anxiety disorder, unspecified; J45.909 Unspecified asthma, uncomplicated; F32.9 Major depressive disorder, single episode, unspecified
CPT/HCPCS: 36415; 41800; 70487; 80053; 85025; 96361; 96365; 96375; 99284; J1885; J2270; J2405; J7030; Q9967